=== PATIENT | female | born 1990 | race American Indian/Alaskan Native ===

== ENCOUNTER 2017-01-22 19:51 | Emergency (ER) | payer OTHER ==
[2017-01-22 20:51] LABS: Basophils % (Auto) 0.5 % (0.0-1.8); Eosinophils % (Auto) 0.4 % (0.0-4.3); Hematocrit 38.2 % (30.3-42.9); Hemoglobin 12.4 gm/dl (10.1-14.3); Mean Corpuscular HGB Conc 33 % (30-34); Mean Corpuscular Hemoglobin 27 pg (28-32); Mean Corpuscular Volume 84 fl (79-97); Platelet Count 209 K/mm3 (140-440); Red Blood Count 4.55 M/mm3 (3.65-5.03); Red Cell Distribution Width 14.8 % (13.2-15.2); White Blood Count 7.4 K/mm3 (4.5-11.0)
[2017-01-22 20:55] LABS: Urine Drugs of Abuse Note Disclamer
[2017-01-22 21:04] LABS: Bilirubin,Urine NEG (Negative); Blood,Urine NEG (Negative); Ketones,Urine 80 mg/dL (Negative); Leukocyte Esterase,Urine MOD (Negative); Mucus,Urine 2+ /HPF; Nitrite,Urine NEG (Negative); Protein,Urine <15 mg/dL mg/dL (Negative); Urobilinogen,Urine < 2.0 mg/dL (<2.0)
[2017-01-22 21:04] LABS: Anion Gap 19 mmol/L; Blood Urea Nitrogen 9 mg/dL (7-17); Calcium 9.4 mg/dL (8.4-10.2); Carbon Dioxide 24 mmol/L (22-30); Glucose 114 mg/dL (65-100); Potassium 4.4 mmol/L (3.6-5.0); Sodium 139 mmol/L (137-145)
--- NOTE | 2017-01-23 02:45 | Emergency Department Report ---
ED Psych HPI - General Chief Complaint: Psych Stated Complaint: MH Time Seen by Provider: 01/22/17 22:30 Source: patient, family Mode of arrival: Ambulatory - History of Present Illness Initial Comments: 26-year-old female with psych history (pt is not sure what her diagnosis is however she states she is followed by behavioral health and is on risperidone.) has presented to Ed complaining of racing thoughts. Patient states over the last couple days she hasn't been able to get her "mind together". She states she's been staying up all night, and increasingly she is hearing voices that do not let her think. the voices are a hug distraction for her. The voices are not telling her to hurt herself or anyone else. Patient's friend at bedside states the patient has not slept in 3 days and is mentally getting worse. The patient has been displaying abnormal behavior such as going to her grandmother' s house today and crawling all over the floor underneath the table. and speaking erratically. Currently the patient denies: SI/HI/VH. Complaint: other (feels of thoughts racing in her brain. ) -: days(s) Associated Psychiatric Symptoms: racing thoughts History of same: Yes Quality: constant Improves With: none Worsens With: none Associated Symptoms: denies other symptoms. denies: confusion, headache, shortness of breath, nausea, vomiting, syncope, insomnia, other - Related Data Home Medications Medication Instructions Recorded Confirmed Last Taken risperiDONE 0.5 mg PO BID 01/22/17 01/22/17 01/22/17 08:00 Allergies Allergy/AdvReac Type Severity Reaction Status Date / Time No Known Allergies Allergy Verified 01/22/17 20:54 ED Review of Systems ROS: Stated complaint: MH Other details as noted in HPI Constitutional: denies: chills, fever Eyes: denies: eye pain, eye discharge, vision change ENT: denies: ear pain, throat pain Respiratory: denies: cough, shortness of breath, wheezing Cardiovascular: denies: chest pain, palpitations Endocrine: no symptoms reported Gastrointestinal: denies: abdominal pain, nausea, diarrhea Genitourinary: denies: urgency, dysuria, discharge Musculoskeletal: denies: back pain, joint swelling, arthralgia Skin: denies: rash, lesions Neurological: denies: headache, weakness, paresthesias Psychiatric: auditory hallucinations. denies: anxiety, depression, visual hallucinations, homicidal thoughts, suicidal thoughts Hematological/Lymphatic: denies: easy bleeding, easy bruising ED Past Medical Hx - Past Medical History Previous Medical History?: Yes Hx Psychiatric Treatment: Yes (ANXIETY/DEPRESSION) - Surgical History Past Surgical History?: No - Social History Smoking Status: Never Smoker Substance Use Type: None - Medications Home Medications: Home Medications Medication Instructions Recorded Confirmed Last Taken Type risperiDONE 0.5 mg PO BID 01/22/17 01/22/17 01/22/17 08:00 History ED Physical Exam - General Limitations: No Limitations General appearance: alert, in no apparent distress - Head Head exam: Present: atraumatic, normocephalic - Eye Eye exam: Present: normal appearance - ENT ENT exam: Present: mucous membranes moist - Neck Neck exam: Present: normal inspection - Respiratory Respiratory exam: Present: normal lung sounds bilaterally. Absent: respiratory distress - Cardiovascular Cardiovascular Exam: Present: regular rate, normal rhythm. Absent: systolic murmur, diastolic murmur, rubs, gallop - GI/Abdominal GI/Abdominal exam: Present: soft, normal bowel sounds - Extremities Exam Extremities exam: Present: normal inspection - Back Exam Back exam: Present: normal inspection - Neurological Exam Neurological exam: Present: alert, oriented X3 - Psychiatric Psychiatric exam: Present: anxious, flat affect, other (pt has flight of ideas when talking to me). Absent: depressed, agitated - Skin Skin exam: Present: warm, dry, intact, normal color. Absent: rash ED Course Vital Signs 01/22/17 01/22/17 20:15 20:56 Temperature 98.8 F Pulse Rate 97 H Respiratory 18 22 Rate Blood Pressure 136/100 O2 Sat by Pulse 100 Oximetry - Reevaluation(s) Reevaluation #1: 01/23/17 02:49 Patient placed on a 1013 ED Medical Decision Making - Lab Data Result diagrams: 01/22/17 20:28 01/22/17 20:28 - Medical Decision Making 26-year-old female with psych history presenting to the ED and acute psychosis. Patient's concerned about herself as well as friends at bedside. Given pt erratic behavior at the home (endorsed by witness) and her flight of ideas in ED , pt has been placed on 1013 as I am concerned she is in an acute psychotic state and is mentally unable to care for herself. Pt medically cleared for psych eval - Differential Diagnosis drug use, Critical Care Time: No Critical care attestation.: If time is entered above; I have spent that time in minutes in the direct care of this critically ill patient, excluding procedure time. ED Disposition Clinical Impression: Acute psychosis Disposition: [id number]/TX-[id number] ANOTHER TYPE [facility]ARE Is pt being admited?: No Does the pt Need Aspirin: No Condition: Stable Referrals: PRIMARY CARE, [Primary Care Provider] - 3-5 Days
[2017-01-23] MEDS: ATIVAN IM PRN ×2 (05:10→11:32)
[2017-01-23 12:10] VITALS: BP 118/72
--- NOTE | 2017-01-23 12:44 | Consultation ---
History of Present Illness - Reason for Consult Consult date: 01/23/17 Reason for consult: Mental Health Evaluation Requesting physician: JORDANA DANIELS - Chief Complaint Chief complaint: "I don't feel well" - History of Present Psychiatric Illness 26-year-old female with psych history presenting to [facility] with racing thoughts. Today patient is calm, cooperative with a circumstantial thought process. She stated feeling "weird" 3 days ago. She stated the TV and newspaper information isn't real, it's a "spirit." She stated that she can see what's happening with a TV even when it's off. She stated that she try to block out the voices from the TV because she feel that they are not "real." She was hospitalized (mental health) for this same type of behavior in the past. She denies SI/HI's and VH' s. She stated that her sleep has been erratic lately because of the voices. She denies recreational drug use and excessive alcohol consumption (etoh). Patient stated that she take Risperdal. Medications and Allergies Allergies Allergy/AdvReac Type Severity Reaction Status Date / Time No Known Allergies Allergy Verified 01/22/17 20:54 Home Medications Medication Instructions Recorded Confirmed Last Taken Type risperiDONE 0.5 mg PO BID 01/22/17 01/22/17 01/22/17 08:00 History Past psychiatric history - Past Medical History Past Medical History: No medical history Past Surgical History: No surgical history - past Psychiatric treatment and history Psych: Psychosis psychiatric treatment history: Patient at [facility] recently. Denies a fam psy hx. - Social History Social history: lives with family, other ([employer] graduate) Mental Status Exam - Vital signs Last Vital Signs Temp 98 F 01/23/17 11:00 Pulse 118 H 01/23/17 11:00 Resp 16 01/23/17 11:00 BP 118/72 01/23/17 11:00 Pulse Ox 100 01/23/17 11:00 - Exam Narrative exam: ROS: (+) psychosis MSE: Appearance: cooperative, calm Behavior: regular eye contact Speech: low rate and tone Mood: "bad" Affect: labile Thought Process: circumstantial Thought Content: denies SI/HI's and VH's, delusional Motor Activity: ambulatory Cognition: A/Ox 3 Insight: limited Judgment: limited Results Result Diagrams: 01/22/17 20:28 01/22/17 20:28 Abnormal lab results 01/22/17 01/22/17 01/22/17 Range/Units 20:28 20:28 20:52 MCH 27 L (28-32) pg Lymph # 1.1 L (1.2-5.4) K/mm3 Seg Neutrophils % 78.5 H (40.0-70.0) % Creatinine 0.6 L (0.7-1.2) mg/dL Glucose 114 H (65-100) mg/dL Urine WBC (Auto) 11.0 H (0.0-6.0) /HPF All other labs normal. Assessment and Plan Assessment and plan: Impression: Unspecified Psychosis. Today patient is calm, cooperative with a circumstantial thought process. Patient experiencing AH's. DDx: Schizophrenia, Bipolar DO with Psychosis Recommendation/Plan: Continue 1013 with placement to [facility].
== END 2017-01-23 12:09 | disposition other institution (70) ==
LOC: ED 19:51
DX: F23 Brief psychotic disorder (principal)
CPT/HCPCS: 36415; 80048; 80307; 81001; 84703; 85025; 96372; 99285; G0480; J2060; 80320